=== PATIENT | male | born 1935 | race Caucasian/White ===

== ENCOUNTER → 2020-07-22 | Day surgery (SDC) | payer MEDICARE ==
[~2020-07-22] MED LIST: ASPIRIN 325MG325 MG PO; AVAPRO150 MG PO; BACTRIM DS TAB1 EACH PO; GLUCOPHAGE500 MG PO; HYDROCHLOROTHIA25 MG PO; LEVOCETIRIZINE D5 MG PO; METOPROLOL TART50 MG PO; NEXIUM40 MG PO; NORCO 5-325 TA1 EACH PO; PROSCAR5 MG PO; SIMVASTATIN20 MG PO; ZOCOR40 MG PO
== END | disposition home or self-care (01) ==
LOC: OR 10:57
PROVIDERS: Urology
PROC: 0TJB8ZZ Inspection of Bladder, Via Natural or Artificial Opening Endoscopic (ICD-10-PCS; principal; 2020-07-22 12:30)
DX: Z08 Encounter for follow-up examination after completed treatment for malignant neoplasm (principal); I10 Essential (primary) hypertension; E11.9 Type 2 diabetes mellitus without complications; K21.9 Gastro-esophageal reflux disease without esophagitis; M15.9 Polyosteoarthritis, unspecified; E55.9 Vitamin D deficiency, unspecified; M10.9 Gout, unspecified; E78.5 Hyperlipidemia, unspecified; E78.00 Pure hypercholesterolemia, unspecified; G43.909 Migraine, unspecified, not intractable, without status migrainosus; N40.1 Benign prostatic hyperplasia with lower urinary tract symptoms; Z85.51 Personal history of malignant neoplasm of bladder; Z79.899 Other long term (current) drug therapy; Z20.822 Contact with and (suspected) exposure to COVID-19
CPT/HCPCS: J7040

== ENCOUNTER → 2020-11-21 | Day surgery (SDC) | payer MEDICARE ==
[~2020-11-21] MED LIST changes: +VIAGRA50 MG PO
== END | disposition home or self-care (01) ==
LOC: OR 07:30
PROVIDERS: Urology
PROC: 0TJB8ZZ Inspection of Bladder, Via Natural or Artificial Opening Endoscopic (ICD-10-PCS; principal; 2020-11-21 13:15)
DX: Z08 Encounter for follow-up examination after completed treatment for malignant neoplasm (principal); N40.1 Benign prostatic hyperplasia with lower urinary tract symptoms; N32.89 Other specified disorders of bladder; I10 Essential (primary) hypertension; E11.9 Type 2 diabetes mellitus without complications; K21.9 Gastro-esophageal reflux disease without esophagitis; E78.00 Pure hypercholesterolemia, unspecified; M15.9 Polyosteoarthritis, unspecified; M10.9 Gout, unspecified; E78.5 Hyperlipidemia, unspecified; G43.909 Migraine, unspecified, not intractable, without status migrainosus; Z79.84 Long term (current) use of oral hypoglycemic drugs; Z20.822 Contact with and (suspected) exposure to COVID-19; Z85.51 Personal history of malignant neoplasm of bladder; Z79.899 Other long term (current) drug therapy; Z90.49 Acquired absence of other specified parts of digestive tract
CPT/HCPCS: 82962; J7040